=== PATIENT | male | born 1985 ===

== ENCOUNTER 2023-03-10 16:48 | Inpatient (IN) | payer OTHER ==
[~2023-03-10] VITALS: Ht 170.2 cm; Wt 77.0 kg
[2023-03-10 18:19] VITALS: BP 119/78
[2023-03-10] MEDS ORDERED: MELATONIN5 M7 PO (18:33)
[2023-03-10] MEDS ORDERED: Acetaminophen650 M1 PO (18:33)
[2023-03-10 19:08] LABS: BASOPHILS ABSOLUTE AUTO 0.02 K/mm3 (0.00-0.23); BASOPHILS PERCENT AUTO 0 % (0-2); EOSINOPHILS PERCENT AUTO 0 % (0-6); Hematocrit 40.3 % (37.0-53.0); Hemoglobin 13.7 g/dL (13.5-17.5); IMMATURE GRAN ABSOLUTE AUTO 0.05 K/mm3 (0.00-0.10); IMMATURE GRAN PERCENT AUTO 0 % (0-1); LYMPHOCYTES ABSOLUTE AUTO 0.48 K/mm3 (0.84-5.20); LYMPHOCYTES PERCENT AUTO 3 % (21-46); MONOCYTES ABSOLUTE AUTO 0.08 K/mm3 (0.16-1.47); MONOCYTES PERCENT AUTO 1 % (4-13); Mean Corpuscular HGB 28.8 pg (26.0-34.0); Mean Corpuscular Volume 85 fL (80-100); Mean Platelet Volume 8.1 fL (9.1-12.4); NEUTROPHILS PERCENT AUTO 96 % (41-73); Platelet Count 314 K/mm3 (150-400); RDW Coefficient Variation 13.2 % (11.7-14.2); RDW Standard Deviation 41.3 fL (35.1-46.3); Red Blood Cell Count 4.75 M/mm3 (4.30-5.90); White Blood Cell Count 14.03 K/mm3 (4.00-11.30)
--- NOTE | 2023-03-10 19:22 | NUR ---
ADMIT NOTE Pt to room via gurney transport at approx 1805. Pt ind in room. Oriented to call light and fall risk. Pt alert, oriented x4; calm and cooperative with care. While updated medicdation list there was no option for medical marijuana, pt states he uses daily. Pt states he drinks 8-10 cans of beer per day, last drink 03/10/23 at 0900. Pt states last use of meth was 2 weeks ago. Vss. No other acute changes noted. Report given to rn assuming care of patient.
[2023-03-10 19:26] LABS: Albumin, Blood 3.3 g/dL (3.4-5.0); Albumin/Globulin Ratio 0.8 (0.8-1.8); Bilirubin, Total 0.6 mg/dL (0.1-1.0); Bun/Creatinine Ratio 9.4 (12.0-20.0); Calcium, Blood 8.7 mg/dL (8.5-10.1); Creatinine, Blood 0.64 mg/dL (0.60-1.20); Globulin, Blood 3.9 g/dL (2.2-4.0); Potassium, Blood 4.1 mmol/L (3.5-5.5); Total Protein, Blood 7.2 g/dL (6.4-8.2)
[2023-03-10 20:14] VITALS: BP 121/74
[2023-03-10 23:53] VITALS: BP 116/70
[2023-03-11 04:02] VITALS: BP 120/73
[2023-03-11 04:08] LABS: BASOPHILS ABSOLUTE AUTO 0.01 K/mm3 (0.00-0.23); BASOPHILS PERCENT AUTO 0 % (0-2); EOSINOPHILS PERCENT AUTO 0 % (0-6); Hematocrit 41.1 % (37.0-53.0); Hemoglobin 13.8 g/dL (13.5-17.5); IMMATURE GRAN ABSOLUTE AUTO 0.06 K/mm3 (0.00-0.10); IMMATURE GRAN PERCENT AUTO 1 % (0-1); LYMPHOCYTES ABSOLUTE AUTO 0.65 K/mm3 (0.84-5.20); LYMPHOCYTES PERCENT AUTO 6 % (21-46); MONOCYTES ABSOLUTE AUTO 0.11 K/mm3 (0.16-1.47); MONOCYTES PERCENT AUTO 1 % (4-13); Mean Corpuscular HGB 28.5 pg (26.0-34.0); Mean Corpuscular HGB Conc 33.6 g/dL (31.5-36.5); Mean Corpuscular Volume 85 fL (80-100); Mean Platelet Volume 8.3 fL (9.1-12.4); NEUTROPHILS ABSOLUTE AUTO 9.27 K/mm3 (1.96-9.15); NEUTROPHILS PERCENT AUTO 92 % (41-73); Platelet Count 321 K/mm3 (150-400); RDW Coefficient Variation 13.2 % (11.7-14.2); RDW Standard Deviation 41.2 fL (35.1-46.3); Red Blood Cell Count 4.84 M/mm3 (4.30-5.90)
[2023-03-11 04:29] LABS: Calcium, Blood 8.3 mg/dL (8.5-10.1); Creatinine, Blood 0.6 mg/dL (0.60-1.20); Potassium, Blood 4.1 mmol/L (3.5-5.5)
--- NOTE | 2023-03-11 05:41 | NUR ---
SHIFT SUMMARY ASSUMED CARE AT 1900. PT IS A/OX4. HEART SOUNDS REGULAR, PT HAD SLIGHT ST ELEVATION NOTED WHEN HE GOT UP TO BATHROOM BUT PT WAS ASYMPTOMATIC, VSS. LUNG SOUNDS CLEAR. PT STATED THROAT FELT MUCH BETTER AND DIDNT HURT. LAST NIGHT HE HD A LUMP ON THE L SIDE OF HIS THROAT AND THIS AM, THE LUMP CAN BARELY BE FELT AND PT STATED FEELING EVEN BETTER SINCE LAST NOC. PT WAS INDEPENDENT TO BATHROOM. PT TAKING SHOWER THIS AM. PT CIWAH WAS ONLY 5, PT REPORTS WANTING TO QUIT DRINKING TOTALLY.
[2023-03-11 07:28] VITALS: BP 117/82
--- NOTE | 2023-03-11 09:04 | NUR ---
CARE ASSUMPTION This RN assumed care at 0700. vital signs stable. tele sinus rhythm 73. patient is alert and oriented x4. perrla. ciwa 1 this am, see ciwa assessments. patient reports no pain. patient reports no chest pain/pressure. patient reports no shortness of breath. patient has a lump on the left side of neck, and patient reports it is not painful and "feels much better". patient has no difficulty swallowing. skin is clean dry and intact. patient is indepdent in the room, and calls if needing assistance. see shift assessment for further detials. Md Frederick in to see patient this AM, did a nasal telescope to see patient back of throat. Patient tolerated well. Md Sparrow and Medical student in room. Plan is for patient to continue ABX and monitor per MD. Patient agrees to plan and verbalized understanding.
[2023-03-11 11:19] VITALS: BP 114/74
--- NOTE | 2023-03-11 14:34 | NUR ---
TRANSFER NOTE/SHIFT SUMMARY This RN gave report to oriana RN on medical floor. Patient neuro remains unchaged, alert and oriented x4. Patient has not had any chest pain/pressure, pain, or shortness of breath throughout this shift. No acute changes this shift. Patient left to room 324 with all belongings intact and in no distress. Plan of care is up to date.
--- NOTE | 2023-03-11 14:40 | NUR ---
PT ARRIVED TO THE MEDICAL FLOOR VIA WHEELCHAIR FROM THE PCU. PT A/OX4, UP IND. THE PT WAS ORIENTED TO THE ROOM LAYOUT AND CALL SYSTEM. CALL LIGHT IN REACH. WILL CONTINUE TO MONITOR AND ASSESS FOR CHANGES
[2023-03-11 14:49] VITALS: BP 122/71
--- NOTE | 2023-03-11 18:11 | NUR ---
PT IS A/OX4, PLEASANT AND COOPERATIVE. THE PT IS UP IND IN HIS ROOM. PT DENIED ANY PAIN. PT REPORTED DESIRE TO GO OUTSIDE AND SMOKE THE PT WAS REMINDED OF THE NO SMOKING CAMPUS POLICY. PT WAS READMINISTERED A NICOTINE PATCH. PT HAS BEEN COMPLIANT. PT DENIED ANY WD SYMPTOMS. CALL LIGHT IN REACH, WILL CONTINUE TO MONITOR AND ASSESS FOR CHANGES
[2023-03-11 19:39] VITALS: BP 128/75
[2023-03-12 04:09] VITALS: BP 109/79
--- NOTE | 2023-03-12 06:30 | NUR ---
AO, INDEPENDENT, PLEASANT, STATES HE WOULD LIKE TO DC TODAY. PT IS HAPPY WITH PROGRESS, FEELS MUCH BETTER. TOLERATING CARES/MEDS. NO SIGNIFICANT EVENTS OVER NIGHT.
[2023-03-12 07:11] VITALS: BP 117/61
--- NOTE | 2023-03-12 11:45 | NUR ---
MD ORDER RE: PT HAVING PCP APPT PLATING MACHINE OPERATOR NOTIFIED OF NEW ORDER TO HELP PT OBTAIN A PCP & AN APPT. PT HAS INSURANCE AND AN ASSIGNED MD. PLATING MACHINE OPERATOR WILL PROVIDE PT WITH PH NUMBER TO CALL IN ORDER FOR PT TO CALL AND ESTABLISH CARE WITH ASSIGNED PCP.
[2023-03-12] MEDS ORDERED: VITAMIN B-1100 MG PO (14:59)
[2023-03-12] MEDS ORDERED: NICODERM CQ1 EA11 TOP (14:59)
[2023-03-12] MEDS ORDERED: FOLI1 PO (14:59)
[2023-03-12] MEDS ORDERED: Cleocin HCl150 MG PO (15:00)
[2023-03-12] MEDS ORDERED: VISBIOME 112.51 EACH PO (15:00)
[2023-03-12] MEDS ORDERED: PRED20 PO (15:00)
[2023-03-12 15:25] VITALS: BP 120/65
[2023-03-12 16:08] LABS: HIV AB/P24 AG SCREEN Non Reactive (Non Reactive)
--- NOTE | 2023-03-12 18:30 | NUR ---
DC HOME WRITTEN & VERBAL DC INSTRUCTIONS GIVEN TO PT WITH PRESENT. BOTH VERBALIZED GOOD UNDERSTANDING. ALL QUESTIONS & CONCERNS ANSWERED. NEW SCRIPT FAXED TO PT'S PREFERRED PHARM. PIV DC'D WITH CATH TIP INTACT AFTER EVENING DOSE OF IV MERROPENEM INFUSED PER MD ORDER, NO REDNESS OR SWELLING NOTED. PT AMBULATED SELF OUT WITH ALL PERSONAL BELONGINGS, GAIT STEADY & STRONG, ACCOMPANIED BY & DTR.
[2023-03-13 04:09] LABS: HBSAG SCREEN Negative (Negative); HCV AB Non Reactive (Non Reactive); HEP B CORE AB, TOT Negative (Negative)
== END 2023-03-12 18:39 | disposition home or self-care (01) | DRG 872 ==
LOC: EDBD 16:48 → MEDS 16:48 → PCU 16:48 → MEDS 03-11 14:38 → ENPENDDIS 03-12 14:48 → MEDS 03-12 18:39
PROVIDERS: Family Medicine; ADMIT Internal Medicine
PROC: 3E03329 Introduction of Other Anti-infective into Peripheral Vein, Percutaneous Approach (ICD-10-PCS; principal; 2023-03-10)
PROC: 0CJS8ZZ Inspection of Larynx, Via Natural or Artificial Opening Endoscopic (ICD-10-PCS; 2023-03-11)
DX: A41.9 Sepsis, unspecified organism (principal); J39.0 Retropharyngeal and parapharyngeal abscess; F17.210 Nicotine dependence, cigarettes, uncomplicated; F15.10 Other stimulant abuse, uncomplicated; F41.8 Other specified anxiety disorders; F10.10 Alcohol abuse, uncomplicated; F12.10 Cannabis abuse, uncomplicated; B95.0 Streptococcus, group A, as the cause of diseases classified elsewhere; B95.61 Methicillin susceptible Staphylococcus aureus infection as the cause of diseases classified elsewhere; K04.7 Periapical abscess without sinus; R13.10 Dysphagia, unspecified; Z71.41 Alcohol abuse counseling and surveillance of alcoholic; Z71.6 Tobacco abuse counseling; I25.2 Old myocardial infarction; Z90.89 Acquired absence of other organs; Z88.0 Allergy status to penicillin; Z79.899 Other long term (current) drug therapy
CPT/HCPCS: 36415; 80048; 80053; 83605; 83735; 85025; 86704; 86708; 86803; 87040; 87070; 87075; 87077; 87147; 87186; 87205; 87340; 87389; A9270; J1100; J2185; J2405; J3411; J7030